=== PATIENT | male | born 1950 | race Hispanic/Latino ===

== ENCOUNTER 2019-05-20 17:57 | Inpatient (IN) | payer MEDICARE ==
[2019-05-21 09:10] LABS: Basophils % (Auto) 0.9 % (0.0-1.8); Eosinophils # (Auto) 0.1 K/mm3 (0.0-0.4); Eosinophils % (Auto) 2.1 % (0.0-4.3); Hematocrit 33.6 % (35.5-45.6); Hemoglobin 11.3 gm/dl (11.8-15.2); Lymphocytes # (Auto) 1.3 K/mm3 (1.2-5.4); Lymphocytes % (Auto) 22.6 % (13.4-35.0); Mean Corpuscular HGB Conc 34 % (32-34); Mean Corpuscular Volume 93 fl (84-94); Monocytes # (Auto) 0.4 K/mm3 (0.0-0.8); Monocytes % (Auto) 7.1 % (0.0-7.3); Platelet Count 250 K/mm3 (140-440); Red Blood Count 3.63 M/mm3 (3.65-5.03); Red Cell Distribution Width 14.4 % (13.2-15.2)
[2019-05-21] MEDS: NICOTINE 21 MG/24 HR PATCH TD SCH (09:24)
[2019-05-21 09:39] LABS: Calcium 9.3 mg/dL (8.4-10.2); Chol/HDL Ratio 2.95 %
--- NOTE | 2019-05-21 10:00 | History and Physical Report ---
GP History & Physical - History of Present Illness Date of admission: 05/20/19 Date of Examination: 05/21/19 Reason for Admission: Danger to self, Danger to others, Failure of Outpatient Treatment, Severe anxiety/depression History of Present Illness: Pt is a 69 y/o male admitted on a 1014 but was willing to sign voluntary. He arrived on the unit @ 2330 accompanied by EMS. Pt has a diagnosis of Ptsd, Dementia, and non compliance with meds. Per family pt has been having increased agitation and has been getting progressively more unstable in the past 2-4 months. He will throw furniture yell and curse and hit things. and has been refusing to take his meds and has not been going to his Dr[facility]. Pt was engaged in a verbal altercation with family and threatened to shoot himself and and the police Mr Velásquez is a 69 year old male. He is aaox3, he is noted drowsy, easily to aroused and able to respond to questions. psychomotor activity appears within normal. When asked if he knew why he was here , he states, "I have a mental health disease disorder, I was brought by the police because i had no other way to get here". He denies SI/ HI and AVH. He reports that he hasn't taken his medication in over a year. PAST PSYCHIATRIC HISTORY: Diagnoses: ptsd, dementia Suicide attempts or Self-harm behavior: no Prior psychiatric hospitalizations: yes, [facility] Substance Abuse history: cocaine Previous psychiatric medications tried: yes, but I don't remember Outpatient treatment:yes PAST MEDICAL HISTORY: htn, high cholesterol, gerd, copd Family Psychiatric History brother SOCIAL HISTORY Marital Status: single Living Arrangements: recovery houses Employment Status:retired Access to guns/weapons: no Education: [employer] History of Abuse: no Legal History:yes REVIEW OF SYSTEMS Constitutional: Negative for weight loss ENT: Negative for stridor Respiratory: Negative for cough or hemoptysis All other systems reviewed and are negative MSE Appearance: aaox3, Behavior: Pleasant and cooperative. Mood: "Good" Affect: Congruent with stated mood Thought Process: Goal directed Speech: Normal rate. Thought Content Harmfulness Denies SI/HI Hallucinations: patient denies Delusions: none elicited Consciousness: alert. Cognition/Memory: normal. Insight/Judgment: Limited. Diagnoses: Ptsd, demenia Treatment Plan Patient will be admitted for inpatient psychiatric evaluation, medication adjustment and close monitoring The patient's behavior, mood, sleep and appetite will be closely monitored. Patient will be enrolled in individual and group therapeutic sessions and encouraged to attend. Patient will be provided with a safe and structured environment. Patient's physical health needs will be addressed by the Hospitalist. Hospitalist Consulted Labs including CBC, CMP, Lipid profile and Hemoglobin A1C ordered Social Assessment will be completed and the Bomb Loader will work with patient and family to ensure a suitable and safe disposition Medication adjustment will be made as clinically indicated Usual Wellness Worship/Preservation: - Start Trazodone 50 mg po QHS & 50 mg po QHS PRN between 10 PM & 2 AM for insomnia - Start [place]-3 for brain health, reduce impulsivity, and as adjunctive treatment for mood disorder, continue upon discharge given overall benefits. The patient agreed on the treatment plan, understood the risk, benefit, alternative treatment, potential consequence of no treatment, and gave informed consent. Physician Certification Statement: This is an acknowledgement statement that FRANCISCO VELÁSQUEZ is a 69 year old M who requires inpatient psychiatric admission for treatment which could reasonably be expected to improve the patient's condition for Estimated period of time patient will need to remain in the hospital: [7 ] Plan for post-hospital care: [ outpatient Legal Status: Involuntary Reaction to Hospitalization: Opposed Medications and Allergies Allergies Allergy/AdvReac Type Severity Reaction Status Date / Time No Known Allergies Allergy Verified 05/21/19 01:19 Home Medications Medication Instructions Recorded Confirmed Last Taken Type Atorvastatin 40 mg PO QHS 05/21/19 05/21/19 05/19/19 History Calcium Carb/Vitamin D3/Vit K2 1,250 mg PO DAILY 05/21/19 05/21/19 05/20/19 Hi story [Calcium Plus Menaq7 Adult Tab] Paxil 40 mg PO DAILY 05/21/19 05/21/19 05/20/19 History Protonix 40 mg PO DAILY 05/21/19 05/21/19 Unknown History amLODIPine 5 mg PO DAILY 05/21/19 05/21/19 05/20/19 History Active Meds: Active Medications Nicotine (Habitrol) 21 mg TD QDAY [facility] Last Admin: 05/21/19 09:24 Dose: 21 mg Documented by: Results - Results Labs/Vitals: Laboratory Last Values WBC 5.6 K/mm3 (4.5-11.0) 05/21/19 08:46 RBC 3.63 M/mm3 (3.65-5.03) L 05/21/19 08:46 Hgb 11.3 gm/dl (11.8-15.2) L 05/21/19 08:46 Hct 33.6 % (35.5-45.6) L 05/21/19 08:46 MCV 93 fl (84-94) 05/21/19 08:46 MCH 31 pg (28-32) 05/21/19 08:46 MCHC 34 % (32-34) 05/21/19 08:46 RDW 14.4 % (13.2-15.2) 05/21/19 08:46 Plt Count 250 K/mm3 (140-440) 05/21/19 08:46 Lymph % (Auto) 22.6 % (13.4-35.0) 05/21/19 08:46 [place] % (Auto) 7.1 % (0.0-7.3) 05/21/19 08:46 Eos % (Auto) 2.1 % (0.0-4.3) 05/21/19 08:46 Baso % (Auto) 0.9 % (0.0-1.8) 05/21/19 08:46 Lymph # 1.3 K/mm3 (1.2-5.4) 05/21/19 08:46 [place] # 0.4 K/mm3 (0.0-0.8) 05/21/19 08:46 Eos # 0.1 K/mm3 (0.0-0.4) 05/21/19 08:46 Baso # 0.0 K/mm3 (0.0-0.1) 05/21/19 08:46 Seg Neutrophils % 67.3 % (40.0-70.0) 05/21/19 08:46 Seg Neutrophils # 3.7 K/mm3 (1.8-7.7) 05/21/19 08:46 Sodium 141 mmol/L (137-145) 05/21/19 08:46 Potassium 4.5 mmol/L (3.6-5.0) 05/21/19 08:46 Chloride 109.8 mmol/L (98-107) H 05/21/19 08:46 Carbon Dioxide 18 mmol/L (22-30) L 05/21/19 08:46 Anion Gap 18 mmol/L 05/21/19 08:46 BUN 35 mg/dL (9-20) H 05/21/19 08:46 Creatinine 3.9 mg/dL (0.8-1.5) H 05/21/19 08:46 Estimated GFR 15 ml/min 05/21/19 08:46 BUN/Creatinine Ratio 9 % 05/21/19 08:46 Glucose 89 mg/dL (75-100) 05/21/19 08:46 POC Glucose 133 (70-105) H 05/21/19 00:29 Hemoglobin A1c 4.9 % (4-6) 05/21/19 08:46 Calcium 9.3 mg/dL (8.4-10.2) 05/21/19 08:46 Triglycerides 111 mg/dL (2-149) 05/21/19 08:46 Cholesterol 124 mg/dL (50-199) 05/21/19 08:46 LDL Cholesterol Direct 69 mg/dL (50-130) 05/21/19 08:46 HDL Cholesterol 42 mg/dL (40-59) 05/21/19 08:46 Cholesterol/HDL Ratio 2.95 % 05/21/19 08:46 Last Vital Signs Temp 97.3 F L 05/21/19 08:45 Pulse 71 05/21/19 08:45 Resp 18 05/21/19 08:45 BP 132/59 05/21/19 08:45 Pulse Ox 98 05/21/19 08:45 Physical Examination - Constitutional Vitals: Vital Signs Temp Pulse Resp BP Pulse Ox 97.3 F L 71 18 132/59 98 05/21/19 08:45 05/21/19 08:45 05/21/19 08:45 05/21/19 08:45 05/21/19 08:45 Temperature -Last 24 Hours Temperature 97.3 F Temperature 97.6 F Mental Status Exam - Vital signs Last Vital Signs Temp 97.3 F L 05/21/19 08:45 Pulse 71 05/21/19 08:45 Resp 18 05/21/19 08:45 BP 132/59 05/21/19 08:45 Pulse Ox 98 05/21/19 08:45 Physician Certification - Certification Statement Physician Certification Statement: This is an acknowledgement statement that FRANCISCOBaron VELÁSQUEZ is a 69 year old M who requires inpatient psychiatric admission for treatment which could reasonably be expected to improve the patient's condition for Estimated period of time patient will need to remain in the hospital: [ ] Plan for post-hospital care: [ ]
[2019-05-21] MEDS ORDERED: HALOPERIDOL LACTATE 5 MG/1 ML INJ IM PRN (10:45)
[2019-05-21] MEDS ORDERED: FLU VACC QUAD 2019-20 (3 YR UP)/PF 60 MCG/0.5 ML SYRINGE IM ONE (12:00)
--- NOTE | 2019-05-21 12:12 | Consultation ---
History of Present Illness - Reason for Consult Consult date: 05/21/19 Reason for consult: psychiatric assessment - Chief Complaint Chief complaint: dementia with behavioral disturbance - History of Present Psychiatric Illness mr shah is a 69 year old male aaox1, he was seated in the dinning room calm and cooperative. he appears his age, dress appropriately. When asked if he knew why he was here, he replied saying " I quess I was been mean to my ". when asked how was he mean he replied, I don't know, sometime I forget what I do", I was brining in some fire wood and lashed out". He denies SI/HI and AVH. He reports eating and sleeping well. he reports drinking 3 beers a day, but stated that his last drink was 2 weeks ago. PAST PSYCHIATRIC HISTORY: Diagnoses: dementia with behavioral disturbance, PTSD, MAJOR DEPRESSION Suicide attempts or Self-harm behavior: NO Prior psychiatric hospitalizations: no Substance Abuse history:no Previous psychiatric medications tried:no Outpatient treatment: no PAST MEDICAL HISTORY: copd, htn, acute kidney injury Family Psychiatric History None reported or documented SOCIAL HISTORY Marital Status: Living Arrangements: lives with Employment Status:retired Access to guns/weapons: no Education: technical school History of Abuse:no Legal History:no REVIEW OF SYSTEMS Constitutional: Negative for weight loss ENT: Negative for stridor Respiratory: Negative for cough or hemoptysis All other systems reviewed and are negative MSE Appearance: Wearing appropriate clothing. Good hygiene Behavior: Pleasant and cooperative. Mood: "Good" Affect: Congruent with stated mood Thought Process: Goal directed Speech: Normal rate. Thought Content Harmfulness Denies SI/HI Hallucinations: patient denies Delusions: none elicited Consciousness: alert. Cognition/Memory: normal. Insight/Judgment: Limited. Diagnoses: Dementia with behavioral disturbance/ ptsd Treatment Plan Patient will be admitted for inpatient psychiatric evaluation, medication adjustment and close monitoring The patient's behavior, mood, sleep and appetite will be closely monitored. Patient will be enrolled in individual and group therapeutic sessions and encouraged to attend. Patient will be provided with a safe and structured environment. Patient's physical health needs will be addressed by the Hospitalist. Hospitali st Consulted Labs including CBC, CMP, Lipid profile and Hemoglobin A1C ordered Social Assessment will be completed and the Account Executive Software Sales will work with patient and family to ensure a suitable and safe disposition Medication adjustment will be made as clinically indicated Usual Wellness Restorationist/Preservation: - Start Trazodone 50 mg po QHS & 50 mg po QHS PRN between 10 PM & 2 AM for insomnia - Start Melatonin 5 mg po QHS to promote circadian rhythm - Start [place]-3 for brain health, reduce impulsivity, and as adjunctive treatment for mood disorder, continue upon discharge given overall benefits. - Start B1 prophylaxis with 200 mg po for 5 days The patient agreed on the treatment plan, understood the risk, benefit, alternative treatment, potential consequence of no treatment, and gave informed consent. Physician Certification Statement: Medications and Allergies Allergies Allergy/AdvReac Type Severity Reaction Status Date / Time No Known Allergies Allergy Verified 05/21/19 01:19 Home Medications Medication Instructions Recorded Confirmed Last Taken Type Atorvastatin 40 mg PO QHS 05/21/19 05/21/19 05/19/19 History Calcium Carb/Vitamin D3/Vit K2 1,250 mg PO DAILY 05/21/19 05/21/19 05/20/19 History [Calcium Plus Menaq7 Adult Tab] Paxil 40 mg PO DAILY 05/21/19 05/21/19 05/20/19 History Protonix 40 mg PO DAILY 05/21/19 05/21/19 Unknown History amLODIPine 5 mg PO DAILY 05/21/19 05/21/19 05/20/19 History Active Meds: Active Medications Fish Oil (Fish Oil) 4,000 mg PO QDAY [facility] Haloperidol Lactate (Haldol) 5 mg IM Q6H PRN PRN Reason: Agitation Nicotine (Habitrol) 21 mg TD QDAY [facility] Last Admin: 05/21/19 09:24 Dose: 21 mg Documented by: Thiamine HCl (Vitamin B-1) 100 mg PO QDAY [facility] Trazodone HCl (Desyrel) 50 mg PO QHS [facility] Mental Status Exam - Vital signs Last Vital Signs Temp 97.3 F L 05/21/19 08:45 Pulse 71 05/21/19 08:45 Resp 18 05/21/19 08:45 BP 132/59 05/21/19 08:45 Pulse Ox 98 05/21/19 08:45 Results Result Diagrams: 05/21/19 08:46 05/21/19 08:46 Abnormal lab results 05/21/19 05/21/19 05/21/19 Range/Units 00:29 08:46 08:46 RBC 3.63 L (3.65-5.03) M/mm3 Hgb 11.3 L (11.8-15.2) gm/dl Hct 33.6 L (35.5-45.6) % Chloride 109.8 H (98-107) mmol/L Carbon Dioxide 18 L (22-30) mmol/L BUN 35 H (9-20) mg/dL Creatinine 3.9 H (0.8-1.5) mg/dL POC Glucose 133 H (70-105) All other labs normal.
--- NOTE | 2019-05-21 13:31 | History and Physical Report ---
GP History & Physical - History of Present Illness Date of admission: 05/20/19 Date of Examination: 05/21/19 Reason for Admission: Danger to self, Danger to others, Severe anxiety/depression History of Present Illness: Pt is a 69 y/o male admitted on a 1014 but was willing to sign voluntary. He arrived on the unit @ 2330 accompanied by EMS. Pt has a diagnosis of Ptsd, Dementia, and non compliance with meds. Per family pt has been having increased agitation and has been getting progressively more unstable in the past 2-4 months. He will throw furniture yell and curse and hit things. and has been refusing to take his meds and [facility] Pt was engaged in a verbal altercation with family and threatened to shoot himself and and the police mr. velásquez is a 69 year old male aaox1, he was seated in the dinning room calm and cooperative. he appears his age, dress appropriately. When asked if he knew why he was here, he replied saying " I quess I was been mean to my ". when asked how was he mean he replied, I don't know, sometime I forget what I do", I was brining in some fire wood and lashed out". He denies SI/HI and AVH. He reports eating and sleeping well. he reports drinking 3 beers a day, but stated that his last drink was 2 weeks ago. PAST PSYCHIATRIC HISTORY: Diagnoses: dementia with behavioral disturbance, PTSD, MAJOR DEPRESSION Suicide attempts or Self-harm behavior: NO Prior psychiatric hospitalizations: no Substance Abuse history:no Previous psychiatric medications tried:no Outpatient treatment: no PAST MEDICAL HISTORY: copd, htn, acute kidney injury Family Psychiatric History None reported or documented SOCIAL HISTORY Marital Status: Living Arrangements: lives with Employment Status:retired Access to guns/weapons: no Education: technical school History of Abuse:no Legal History:no REVIEW OF SYSTEMS Constitutional: Negative for weight loss ENT: Negative for stridor Respiratory: Negative for cough or hemoptysis All other systems reviewed and are negative MSE Appearance: Wearing appropriate clothing. Good hygiene Behavior: Pleasant and cooperative. Mood: "Good" Affect: Congruent with stated mood Thought Process: Goal directed Speech: Normal rate. Thought Content Harmfulness Denies SI/HI Hallucinations: patient denies Delusions: none elicited Consciousness: alert. Cognition/Memory: normal. Insight/Judgment: Limited. Diagnoses: Dementia with behavioral disturbance/ PTSD Treatment Plan Patient will be admitted for inpatient psychiatric evaluation, medication adjustment and close monitoring The patient's behavior, mood, sleep and appetite will be closely monitored. Patient will be enrolled in individual and group therapeutic sessions and encouraged to attend. Patient will be provided with a safe and structured environment. Patient's physical health needs will be addressed by the Hospitalist. Hospitalist Consulted Labs including CBC, CMP, Lipid profile and Hemoglobin A1C ordered Social Assessment will be completed and the Bin Piler will work with patient and family to ensure a suitable and safe disposition Medication adjustment will be made as clinically indicated Usual Wellness Yarsanism/Preservation: - Start Trazodone 50 mg po QHS & 50 mg po QHS PRN between 10 PM & 2 AM for insomnia - Start [place]-3 for brain health, reduce impulsivity, and as adjunctive treatment for mood disorder, continue upon discharge given overall benefits. - Start B1 prophylaxis with 200 mg po for 5 days - start depakote 125mg bid - folic acid 1mg daily The patient agreed on the treatment plan, understood the risk, benefit, alternative treatment, potential consequence of no treatment, and gave informed consent. Physician Certification Statement: This is an acknowledgement statement that FRANCISCO VELÁSQUEZ is a 69 year old M who requires inpatient psychiatric admission for treatment which could reasonably be expected to improve the patient's condition for Estimated period of time patient will need to remain in the hospital: [ 7] Plan for post-hospital care: [ outpatient] Medications and Allergies Allergies Allergy/AdvReac Type Severity Reaction Status Date / Time No Known Allergies Allergy Verified 05/21/19 01:19 Home Medications Medication Instructions Recorded Confirmed Last Taken Type Atorvastatin 40 mg PO QHS 05/21/19 05/21/19 05/19/19 History Calcium Carb/Vitamin D3/Vit K2 1,250 mg PO DAILY 05/21/19 05/21/19 05/20/19 History [Calcium Plus Menaq7 Adult Tab] Paxil 40 mg PO DAILY 05/21/19 05/21/19 05/20/19 History Protonix 40 mg PO DAILY 05/21/19 05/21/19 Unknown History amLODIPine 5 mg PO DAILY 05/21/19 05/21/19 05/20/19 History Active Meds: Active Medications Fish Oil (Fish Oil) 4,000 mg PO QDAY [facility] Haloperidol Lactate (Haldol) 5 mg IM Q6H PRN PRN Reason: Agitation Nicotine (Habitrol) 21 mg TD QDAY [facility] Last Admin: 05/21/19 09:24 Dose: 21 mg Documented by: Thiamine HCl (Vitamin B-1) 100 mg PO QDAY [facility] Trazodone HCl (Desyrel) 50 mg PO QHS [facility] Mental Status Exam - Vital signs Last Vital Signs Temp 97.3 F L 05/21/19 08:45 Pulse 71 05/21/19 08:45 Resp 18 05/21/19 08:45 BP 132/59 05/21/19 08:45 Pulse Ox 98 05/21/19 08:45 Results Result Diagrams: 05/21/19 08:46 05/21/19 08:46 Abnormal lab results 05/21/19 05/21/19 05/21/19 Range/Units 00:29 08:46 08:46 RBC 3.63 L (3.65-5.03) M/mm3 Hgb 11.3 L (11.8-15.2) gm/dl Hct 33.6 L (35.5-45.6) % Chloride 109.8 H (98-107) mmol/L Carbon Dioxide 18 L (22-30) mmol/L BUN 35 H (9-20) mg/dL Creatinine 3.9 H (0.8-1.5) mg/dL POC Glucose 133 H (70-105) All other labs normal. Legal Status: Involuntary Reaction to Hospitalization: Resistant Medications and Allergies Allergies Allergy/AdvReac Type Severity Reaction Status Date / Time No Known Allergies Allergy Verified 05/21/19 01:19 Home Medications Medication Instructions Recorded Confirmed Last Taken Type Atorvastatin 40 mg PO QHS 05/21/19 05/21/19 05/19/19 History Calcium Carb/Vitamin D3/Vit K2 1,250 mg PO DAILY 05/21/19 05/21/19 05/20/19 History [Calcium Plus Menaq7 Adult Tab] Paxil 40 mg PO DAILY 05/21/19 05/21/19 05/20/19 History Protonix 40 mg PO DAILY 05/21/19 05/21/19 Unknown History amLODIPine 5 mg PO DAILY 05/21/19 05/21/19 05/20/19 History Active Meds: Active Medications Divalproex Sodium (Depakote Dr) 125 mg PO BID [facility] Fish Oil (Fish Oil) 4,000 mg PO QDAY [facility] Folic Acid (Folvite) 1 mg PO QDAY [facility] Haloperidol Lactate (Haldol) 5 mg IM Q6H PRN PRN Reason: Agitation Nicotine (Habitrol) 21 mg TD QDAY [facility] Last Admin: 05/21/19 09:24 Dose: 21 mg Documented by: Paroxetine HCl (Paxil) 40 mg PO QDAY [facility] Thiamine HCl (Vitamin B-1) 100 mg PO QDAY [facility] Trazodone HCl (Desyrel) 50 mg PO QHS [facility] Results - Results Labs/Vitals: Laboratory Last Values WBC 5.6 K/mm3 (4.5-11.0) 05/21/19 08:46 RBC 3.63 M/mm3 (3.65-5.03) L 05/21/19 08:46 Hgb 11.3 gm/dl (11.8-15.2) L 05/21/19 08:46 Hct 33.6 % (35.5-45.6) L 05/21/19 08:46 MCV 93 fl (84-94) 05/21/19 08:46 MCH 31 pg (28-32) 05/21/19 08:46 MCHC 34 % (32-34) 05/21/19 08:46 RDW 14.4 % (13.2-15.2) 05/21/19 08:46 Plt Count 250 K/mm3 (140-440) 05/21/19 08:46 Lymph % (Auto) 22.6 % (13.4-35.0) 05/21/19 08:46 [place] % (Auto) 7.1 % (0.0-7.3) 05/21/19 08:46 Eos % (Auto) 2.1 % (0.0-4.3) 05/21/19 08:46 Baso % (Auto) 0.9 % (0.0-1.8) 05/21/19 08:46 Lymph # 1.3 K/mm3 (1.2-5.4) 05/21/19 08:46 [place] # 0.4 K/mm3 (0.0-0.8) 05/21/19 08:46 Eos # 0.1 K/mm3 (0.0-0.4) 05/21/19 08:46 Baso # 0.0 K/mm3 (0.0-0.1) 05/21/19 08:46 Seg Neutrophils % 67.3 % (40.0-70.0) 05/21/19 08:46 Seg Neutrophils # 3.7 K/mm3 (1.8-7.7) 05/21/19 08:46 Sodium 141 mmol/L (137-145) 05/21/19 08:46 Potassium 4.5 mmol/L (3.6-5.0) 05/21/19 08:46 Chloride 109.8 mmol/L (98-107) H 05/21/19 08:46 Carbon Dioxide 18 mmol/L (22-30) L 05/21/19 08:46 Anion Gap 18 mmol/L 05/21/19 08:46 BUN 35 mg/dL (9-20) H 05/21/19 08:46 Creatinine 3.9 mg/dL (0.8-1.5) H 05/21/19 08:46 Estimated GFR 15 ml/min 05/21/19 08:46 BUN/Creatinine Ratio 9 % 05/21/19 08:46 Glucose 89 mg/dL (75-100) 05/21/19 08:46 POC Glucose 133 (70-105) H 05/21/19 00:29 Hemoglobin A1c 4.9 % (4-6) 05/21/19 08:46 Calcium 9.3 mg/dL (8.4-10.2) 05/21/19 08:46 Triglycerides 111 mg/dL (2-149) 05/21/19 08:46 Cholesterol 124 mg/dL (50-199) 05/21/19 08:46 LDL Cholesterol Direct 69 mg/dL (50-130) 05/21/19 08:46 HDL Cholesterol 42 mg/dL (40-59) 05/21/19 08:46 Cholesterol/HDL Ratio 2.95 % 05/21/19 08:46 Last Vital Signs Temp 97.3 F L 05/21/19 08:45 Pulse 71 05/21/19 08:45 Resp 18 05/21/19 08:45 BP 132/59 05/21/19 08:45 Pulse Ox 98 05/21/19 08:45 Physical Examination - Constitutional Vitals: Vital Signs Temp Pulse Resp BP Pulse Ox 97.3 F L 71 18 132/59 98 05/21/19 08:45 05/21/19 08:45 05/21/19 08:45 05/21/19 08:45 05/21/19 08:45 Temperature -Last 24 Hours Temperature 97.3 F Temperature 97.6 F Mental Status Exam - Vital signs Last Vital Signs Temp 97.3 F L 05/21/19 08:45 Pulse 71 05/21/19 08:45 Resp 18 05/21/19 08:45 BP 132/59 05/21/19 08:45 Pulse Ox 98 05/21/19 08:45 Physician Certification - Certification Statement Physician Certification Statement: This is an acknowledgement statement that FRANCISCO VELÁSQUEZ is a 69 year old M who requires inpatient psychiatric admission for treatment which could reasonably be expected to improve the patient's condition for Estimated period of time patient will need to remain in the hospital: [ 7] Plan for post-hospital care: [ outpatient]
--- NOTE | 2019-05-21 15:26 | Consultation ---
<JESSE BELLE - Last Filed: 05/21/19 21:35> History of Present Illness - Reason for Consult Requesting physician: DOREEN GONCALVES - History of Present Illness 69-year-old male with dementia, PTSD, major depression, COPD, HTN, CKD admitted to the geriatric psychiatry unit for psychiatric stabilization. Patient seen and evaluated in the day room. Patient is cooperative and resting comfortably. Patient denies fever, chills, chest pain, palpitations, shortness of breath, cough, productive cough, malaise, or recent ill contacts. No reported nursing events.. Past History Past Medical History: COPD, hypertension, other (See HPI) Medications and Allergies Allergies Allergy/AdvReac Type Severity Reaction Status Date / Time No Known Allergies Allergy Verified 05/21/19 01:19 Home Medications Medication Instructions Recorded Confirmed Last Taken Type Atorvastatin 40 mg PO QHS 05/21/19 05/21/19 05/19/19 History Calcium Carb/Vitamin D3/Vit K2 1,250 mg PO DAILY 05/21/19 05/21/19 05/20/19 History [Calcium Plus Menaq7 Adult Tab] Paxil 40 mg PO DAILY 05/21/19 05/21/19 05/20/19 History Protonix 40 mg PO DAILY 05/21/19 05/21/19 Unknown History amLODIPine 5 mg PO DAILY 05/21/19 05/21/19 05/20/[address] [Johana Dan] 125 mg PO BID #60 tablet 05/22/19 Unknown Rx traZODone [Desyrel] 50 mg PO QHS #30 tablet 05/22/19 Unknown Rx Active Meds: Active Medications Amlodipine Besylate (Amlodipine) 5 mg PO QDAY [facility] Atorvastatin Calcium (Lipitor) 40 mg PO QHS [facility] Divalproex Sodium (Johana Dan) 125 mg PO BID [facility] Fish Oil (Fish Oil) 4,000 mg PO QDAY [facility] Folic Acid (Folvite) 1 mg PO QDAY [facility] Haloperidol Lactate (Haldol) 5 mg IM Q6H PRN PRN Reason: Agitation Nicotine (Habitrol) 21 mg TD QDAY [facility] Last Admin: 05/21/19 09:24 Dose: 21 mg Documented by: Pantoprazole Sodium (Protonix) 40 mg PO DAILY [facility] Paroxetine HCl (Paxil) 40 mg PO QDAY [facility] Thiamine HCl (Vitamin B-1) 100 mg PO QDAY [facility] Trazodone HCl (Desyrel) 50 mg PO QHS [facility] Exam - Constitutional Vitals: Temp Pulse Resp BP Pulse Ox 97.3 F L 63 18 154/74 100 05/21/19 19:53 05/21/19 19:53 05/21/19 19:53 05/21/19 19:53 05/21/19 19:53 Results - Labs CBC & Chem 7: 05/21/19 08:46 05/21/19 08:46 Labs: Abnormal lab results 05/21/19 05/21/19 05/21/19 Range/Units 00:29 08:46 08:46 RBC 3.63 L (3.65-5.03) M/mm3 Hgb 11.3 L (11.8-15.2) gm/dl Hct 33.6 L (35.5-45.6) % Chloride 109.8 H (98-107) mmol/L Carbon Dioxide 18 L (22-30) mmol/L BUN 35 H (9-20) mg/dL Creatinine 3.9 H (0.8-1.5) mg/dL POC Glucose 133 H (70-105) <DEEP CHAMORRO - Last Filed: 05/22/19 13:37> History of Present Illness - Reason for Consult Consult date: 05/21/19 Medications and Allergies Active Meds: Active Medications Divalproex Sodium (Depakote Dr) 125 mg PO BID [facility] Fish Oil (Fish Oil) 4,000 mg PO QDAY [facility] Folic Acid (Folvite) 1 mg PO QDAY [facility] Haloperidol Lactate (Haldol) 5 mg IM Q6H PRN PRN Reason: Agitation Nicotine (Habitrol) 21 mg TD QDAY [facility] Last Admin: 05/21/19 09:24 Dose: 21 mg Documented by: Paroxetine HCl (Paxil) 40 mg PO QDAY [facility] Thiamine HCl (Vitamin B-1) 100 mg PO QDAY [facility] Trazodone HCl (Desyrel) 50 mg PO QHS [facility] Exam - Constitutional Vitals: Temp Pulse Resp BP Pulse Ox 97.3 F L 71 18 132/59 98 05/21/19 08:45 05/21/19 08:45 05/21/19 08:45 05/21/19 08:45 05/21/19 08:45 Results - Labs CBC & Chem 7: 05/21/19 08:46 05/21/19 08:46 Labs: Abnormal lab results 05/21/19 05/21/19 05/21/19 Range/Units 00:29 08:46 08:46 RBC 3.63 L (3.65-5.03) M/mm3 Hgb 11.3 L (11.8-15.2) gm/dl Hct 33.6 L (35.5-45.6) % Chloride 109.8 H (98-107) mmol/L Carbon Dioxide 18 L (22-30) mmol/L BUN 35 H (9-20) mg/dL Creatinine 3.9 H (0.8-1.5) mg/dL POC Glucose 133 H (70-105) Assessment and Plan Patient was seen and examined by DR Belle for consult.
--- NOTE | 2019-05-21 21:41 | Consultation ---
Past History Past Medical History: COPD, hypertension, other (See HPI) Medications and Allergies Allergies Allergy/AdvReac Type Severity Reaction Status Date / Time No Known Allergies Allergy Verified 05/21/19 01:19 Home Medications Medication Instructions Recorded Confirmed Last Taken Type Atorvastatin 40 mg PO QHS 05/21/19 05/21/19 05/19/19 History Calcium Carb/Vitamin D3/Vit K2 1,250 mg PO DAILY 05/21/19 05/21/19 05/20/19 History [Calcium Plus Menaq7 Adult Tab] Paxil 40 mg PO DAILY 05/21/19 05/21/19 05/20/19 History Protonix 40 mg PO DAILY 05/21/19 05/21/19 Unknown History amLODIPine 5 mg PO DAILY 05/21/19 05/21/19 05/20/19 History Active Meds: Active Medications Amlodipine Besylate (Amlodipine) 5 mg PO QDAY [facility] Atorvastatin Calcium (Lipitor) 40 mg PO QHS [facility] Divalproex Sodium (Depakote Dr) 125 mg PO BID [facility] Fish Oil (Fish Oil) 4,000 mg PO QDAY [facility] Folic Acid (Folvite) 1 mg PO QDAY [facility] Haloperidol Lactate (Haldol) 5 mg IM Q6H PRN PRN Reason: Agitation Nicotine (Habitrol) 21 mg TD QDAY [facility] Last Admin: 05/21/19 09:24 Dose: 21 mg Documented by: Pantoprazole Sodium (Protonix) 40 mg PO DAILY [facility] Paroxetine HCl (Paxil) 40 mg PO QDAY [facility] Thiamine HCl (Vitamin B-1) 100 mg PO QDAY [facility] Trazodone HCl (Desyrel) 50 mg PO QHS [facility] Exam - Constitutional Vitals: Temp Pulse Resp BP Pulse Ox 97.3 F L 63 18 154/74 100 05/21/19 19:53 05/21/19 19:53 05/21/19 19:53 05/21/19 19:53 05/21/19 19:53 Results - Labs CBC & Chem 7: 05/21/19 08:46 05/21/19 08:46 Labs: Abnormal lab results 05/21/19 05/21/19 05/21/19 Range/Units 00:29 08:46 08:46 RBC 3.63 L (3.65-5.03) M/mm3 Hgb 11.3 L (11.8-15.2) gm/dl Hct 33.6 L (35.5-45.6) % Chloride 109.8 H (98-107) mmol/L Carbon Dioxide 18 L (22-30) mmol/L BUN 35 H (9-20) mg/dL Creatinine 3.9 H (0.8-1.5) mg/dL POC Glucose 133 H (70-105)
--- NOTE | 2019-05-21 21:43 | Event Note ---
Dr. Wild: [id number]
[2019-05-21] MEDS ORDERED: traZODone 50 MG TAB PO SCH (22:00)
[2019-05-21] MEDS ORDERED: NON-FORMULARY EACH (Atorvastatin 40 MG) PO SCH (22:00)
[2019-05-21] MEDS: DIVALPROEX DR 125 MG TAB PO SCH (22:15)
--- NOTE | 2019-05-22 08:59 | Discharge Summary ---
Providers - Providers Date of Admission: 05/20/19 20:15 Date of discharge: 05/22/19 Attending physician: DOREEN GONCALVES MD 05/21/19 08:00 Consult to Physician [CONS] Routine Comment: Consulting Provider: DEEP CHAMORRO Physician Instructions: Reason For Exam: H&P and Medical Mgmt Primary care physician: AUTOPSY PATHOLOGIST Hospitalization Reason for admission: Major Depressive Disorder, Dementia Condition: Stable Hospital course: The patient was provided inpatient psychiatric treatment with a safe and sup portive environment, group/individual therapy, psychiatric medication, including medication adjustment, monitoring for adverse effects, medical evaluation, medical treatment, social service assessment, social support meeting, placement assessment and psycho-education. The patient's mood, cognition, behavior, motivation, compliance to treatment and appreciation on family/social support are improved and stabilized. At the time of discharge the patient had no suicidal, homicidal ideations or endangering behavior, and no debilitating adverse effects. The patient agreed on the treatment plan, understand the risk, benefit, alternative treatment, potential consequence of no treatment and gave informed consent. Disposition: - TO HOME OR SELFCARE Time spent for discharge: 35 Allergies/Adverse Reactions: Allergies No Known Allergies Allergy (Verified 05/21/19 01:19) Vital Signs: Last Vital Signs Temp 97.3 F L 05/21/19 19:53 Pulse 63 05/21/19 19:53 Resp 18 05/21/19 19:53 BP 154/74 05/21/19 19:53 Pulse Ox 100 05/21/19 19:53 Last Lab: Laboratory Last Values WBC 5.6 K/mm3 (4.5-11.0) 05/21/19 08:46 RBC 3.63 M/mm3 (3.65-5.03) L 05/21/19 08:46 Hgb 11.3 gm/dl (11.8-15.2) L 05/21/19 08:46 Hct 33.6 % (35.5-45.6) L 05/21/19 08:46 MCV 93 fl (84-94) 05/21/19 08:46 MCH 31 pg (28-32) 05/21/19 08:46 MCHC 34 % (32-34) 05/21/19 08:46 RDW 14.4 % (13.2-15.2) 05/21/19 08:46 Plt Count 250 K/mm3 (140-440) 05/21/19 08:46 Lymph % (Auto) 22.6 % (13.4-35.0) 05/21/19 08:46 [place] % (Auto) 7.1 % (0.0-7.3) 05/21/19 08:46 Eos % (Auto) 2.1 % (0.0-4.3) 05/21/19 08:46 Baso % (Auto) 0.9 % (0.0-1.8) 05/21/19 08:46 Lymph # 1.3 K/mm3 (1.2-5.4) 05/21/19 08:46 [place] # 0.4 K/mm3 (0.0-0.8) 05/21/19 08:46 Eos # 0.1 K/mm3 (0.0-0.4) 05/21/19 08:46 Baso # 0.0 K/mm3 (0.0-0.1) 05/21/19 08:46 Seg Neutrophils % 67.3 % (40.0-70.0) 05/21/19 08:46 Seg Neutrophils # 3.7 K/mm3 (1.8-7.7) 05/21/19 08:46 Sodium 141 mmol/L (137-145) 05/21/19 08:46 Potassium 4.5 mmol/L (3.6-5.0) 05/21/19 08:46 Chloride 109.8 mmol/L (98-107) H 05/21/19 08:46 Carbon Dioxide 18 mmol/L (22-30) L 05/21/19 08:46 Anion Gap 18 mmol/L 05/21/19 08:46 BUN 35 mg/dL (9-20) H 05/21/19 08:46 Creatinine 3.9 mg/dL (0.8-1.5) H 05/21/19 08:46 Estimated GFR 15 ml/min 05/21/19 08:46 BUN/Creatinine Ratio 9 % 05/21/19 08:46 Glucose 89 mg/dL (75-100) 05/21/19 08:46 POC Glucose 133 (70-105) H 05/21/19 00:29 Hemoglobin A1c 4.9 % (4-6) 05/21/19 08:46 Calcium 9.3 mg/dL (8.4-10.2) 05/21/19 08:46 Triglycerides 111 mg/dL (2-149) 05/21/19 08:46 Cholesterol 124 mg/dL (50-199) 05/21/19 08:46 LDL Cholesterol Direct 69 mg/dL (50-130) 05/21/19 08:46 HDL Cholesterol 42 mg/dL (40-59) 05/21/19 08:46 Cholesterol/HDL Ratio 2.95 % 05/21/19 08:46 Core Measure Documentation - Palliative Care Palliative Care/ Comfort Measures: Not Applicable - Core Measures Any of the following diagnoses?: none Exam - Constitutional Vitals: Temp Pulse Resp BP Pulse Ox 97.3 F L 63 18 154/74 100 05/21/19 19:53 05/21/19 19:53 05/21/19 19:53 05/21/19 19:53 05/21/19 19:53 General appearance: Present: no acute distress, well-nourished - EENT Eyes: Present: PERRL, EOM intact ENT: hearing intact, clear oral mucosa - Neck Neck: Present: normal ROM - Respiratory Respiratory effort: normal Plan Care Plan Goals: Maintain good and stable mental health Plan of Treatment: The patient should be compliant with medications, do not engage in drug use or alcohol The patient understands that if suicidal or homicidal ideations or any en dangered thoughts arise, the patient should immediately seed emergency assistance including but not limited to crisis hotline and emergency room. Follow up with psychiatrist and PCP within 7-14 days of discharge Health Concerns: Dementia Assessment: Dementia Major Depressive Disorder Follow up with: PRIMARY CARE,MD [Primary Care Provider] - 7 Days Prescriptions: traZODone [Desyrel] 50 mg PO QHS #[address] [Depakote Dr] 125 mg PO BID #60 tablet
[2019-05-22] MEDS ORDERED: PARoxetine 20 MG TAB PO SCH (10:00)
[2019-05-22] MEDS ORDERED: CALCIUM CARB PO SCH (10:00)
[2019-05-22] MEDS ORDERED: VITAMIN D3 PO SCH (10:00)
[2019-05-22] MEDS ORDERED: NON-FORMULARY EACH (Protonix 40 MG) PO SCH (10:00)
[2019-05-22] MEDS ORDERED: amLODIPine 5 MG TAB PO SCH (10:00)
[2019-05-22] MEDS ORDERED: FOLIC ACID 1 MG TAB PO SCH (10:00)
[2019-05-22] MEDS ORDERED: OMEGA-3 FATTY ACIDS/FISH OIL 1 GRAM CAP PO SCH (10:00)
[2019-05-22] MEDS ORDERED: NON-FORMULARY EACH (Amlodipine 5 MG) PO SCH (10:00)
[2019-05-22] MEDS ORDERED: [UNRECOGNIZED DRUG - OTHER] PO SCH (10:00)
[2019-05-22] MEDS ORDERED: THIAMINE 100 MG TAB PO SCH (10:00)
[2019-05-22] MEDS ORDERED: PANTOPRAZOLE 40 MG TAB PO SCH (10:00)
[2019-05-22] MEDS ORDERED: VIT K2 PO SCH (10:00)
[2019-05-22] MEDS: NICOTINE 21 MG/24 HR PATCH TD SCH (10:23)
[2019-05-22] MEDS: DIVALPROEX DR 125 MG TAB PO SCH (10:24)
[2019-05-22 10:28] VITALS: BP 116/72
== END 2019-05-22 12:40 | disposition home or self-care (01) | DRG 884 ==
LOC: UNDOADMIN 17:57 → 3A 17:57 → 5A 20:15
PROVIDERS: ADMIT Psychiatry & Neurology Psychiatry; ATTEND Psychiatry & Neurology Psychiatry
DX: F03.91 Unspecified dementia, unspecified severity, with behavioral disturbance (principal); N18.9 Chronic kidney disease, unspecified; F32.9 Major depressive disorder, single episode, unspecified; F43.10 Post-traumatic stress disorder, unspecified; J44.9 Chronic obstructive pulmonary disease, unspecified; I12.9 Hypertensive chronic kidney disease with stage 1 through stage 4 chronic kidney disease, or unspecified chronic kidney disease
CPT/HCPCS: 36415; 80048; 80061; 82962; 83036; 85025; 90686; G0378; A9270-GY